=== PATIENT | male | born 1960 | race Caucasian/White ===

== ENCOUNTER → 2016-11-19 | Outpatient (CLI) | payer OTHER | END | disposition home or self-care (01) | LOC: CFH 14:59 | PROVIDERS: ATTEND Family Medicine | DX: M51.36 Other intervertebral disc degeneration, lumbar region (principal); M51.26 Other intervertebral disc displacement, lumbar region; M48.06 Spinal stenosis, lumbar region; M25.78 Osteophyte, vertebrae | CPT/HCPCS: 72148 ==

== ENCOUNTER → 2017-04-29 | Outpatient (CLI) | payer OTHER | END | disposition home or self-care (01) | LOC: CVU 12:58 | PROVIDERS: ATTEND Internal Medicine Cardiovascular Disease | DX: R60.0 Localized edema (principal) | CPT/HCPCS: 93970 ==

== ENCOUNTER → 2018-03-15 | Outpatient (CLI) | payer OTHER | END | disposition home or self-care (01) | LOC: CFH 09:53 | PROVIDERS: ATTEND Family Medicine | DX: M79.9 Soft tissue disorder, unspecified (principal) | CPT/HCPCS: 76705 ==

== ENCOUNTER 2019-03-09 14:08 | Day surgery (SDC) | payer OTHER ==
[~2019-03-09] VITALS: Ht 177.8 cm; Wt 77.0 kg
[2019-03-09] MEDS ORDERED: LACTATED RINGERS 1,000 ML IV ONE (14:46)
[2019-03-09 14:51] VITALS: BP 150/94
[2019-03-09] MEDS ORDERED: DAPA5TAB PO (15:14)
[2019-03-09] MEDS ORDERED: ASPI-515 PO (15:14)
[2019-03-09] MEDS ORDERED: METF500T17 PO (15:14)
[2019-03-09] MEDS ORDERED: ATOR10TA9 PO (15:14)
[2019-03-09] MEDS ORDERED: CARVEDILOL PO (15:14)
[2019-03-09] MEDS ORDERED: CHLO25TA PO (15:14)
[2019-03-09] MEDS ORDERED: MIDAZOLAM 1 MG/ML, 2ML ONE (15:39)
[2019-03-09] MEDS ORDERED: FENTANYL PF 100 MCG/2ML ONE (15:39)
[2019-03-09 15:55] LABS: ANION GAP 7 mmol/L (5-15); CALCIUM 8.7 mg/dL (8.5-10.1); CHLORIDE 110 mmol/L (98-107)
[2019-03-09 15:58] LABS: ALANINE AMINOTRANSFERASE 15 U/L (12-78); ALKALINE PHOSPHATASE 80 U/L (45-117); BILIRUBIN,TOTAL 0.8 mg/dL (0.2-1.0); CREATININE 0.65 mg/dL (0.7-1.3); TOTAL PROTEIN 7.2 g/dL (6.4-8.2)
[2019-03-09] MEDS ORDERED: BACITRACIN 50,000 UNIT ONE (16:10)
[2019-03-09] MEDS ORDERED: BUPIVACAINE/PF 0.5% ONE ×2 (16:10→16:31)
[2019-03-09] MEDS ORDERED: EPINEPHRINE 1 MG/ML, 1ML ONE ×2 (16:10→16:31)
[2019-03-09] MEDS ORDERED: DEXAMETHASONE 4 MG/ML, 1ML ONE (16:23)
[2019-03-09] MEDS ORDERED: PROPOFOL 10 MG/ML, 20ML ONE (16:24)
[2019-03-09] MEDS ORDERED: CEFAZOLIN 1,000 MG ONE (16:24)
[2019-03-09] MEDS ORDERED: ONDANSETRON 2MG/ML, 2ML ONE (16:24)
[2019-03-09] MEDS ORDERED: KETOROLAC 30 MG/1 ML ONE (16:25)
[2019-03-09] MEDS ORDERED: OXYcodone 5 MG/5 ML ORAL.SOL UDC PO PRN (16:30)
[2019-03-09] MEDS ORDERED: ONDANSETRON 2MG/ML, 2ML IV PRN (16:30)
[2019-03-09] MEDS ORDERED: ACETAMINOPHEN 325 MG TABLET PO PRN (16:30)
[2019-03-09] MEDS ORDERED: HYDROmorphone 2 MG/ML, 1ML IVPush PRN (16:30)
[2019-03-09] MEDS ORDERED: FENTANYL PF 100 MCG/2ML IV PRN (16:30)
[2019-03-09] MEDS ORDERED: hydrALAzine 20 MG/ML, 1ML IV PRN (16:30)
[2019-03-09] MEDS ORDERED: MEPERIDINE/PF 25MG/ML,1ML IVPush PRN (16:30)
[2019-03-09] MEDS ORDERED: PROMETHAZINE 25 MG/ML, 1ML IV PRN (16:30)
[2019-03-09] MEDS ORDERED: LABETALOL 5MG/ML, 20ML IV PRN (16:30)
[2019-03-09] MEDS ORDERED: EPHEDRINE 50 MG/ML, 1ML ONE (16:40)
== END 2019-03-09 18:15 | disposition home or self-care (01) ==
LOC: OR 14:08
PROVIDERS: ATTEND Orthopaedic Surgery
DX: G56.03 Carpal tunnel syndrome, bilateral upper limbs (principal); I10 Essential (primary) hypertension; E11.9 Type 2 diabetes mellitus without complications; I25.10 Atherosclerotic heart disease of native coronary artery without angina pectoris; M06.9 Rheumatoid arthritis, unspecified; Z79.84 Long term (current) use of oral hypoglycemic drugs; Z79.82 Long term (current) use of aspirin; Z79.899 Other long term (current) drug therapy; Z87.891 Personal history of nicotine dependence; Z88.0 Allergy status to penicillin; Z91.018 Allergy to other foods; Z95.1 Presence of aortocoronary bypass graft; Z82.3 Family history of stroke; Z82.61 Family history of arthritis; Z82.49 Family history of ischemic heart disease and other diseases of the circulatory system
CPT/HCPCS: 29848; 36415; 80053; 93005; J0171; J0690; J1100; J1885; J2250; J2405; J2704; J3010; J7120